=== PATIENT | female | born 2005 | race Caucasian/White ===

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

== ENCOUNTER → 2025-08-18 | Outpatient (CLI) | payer OTHER | LOC: M CLY 14:03 | PROVIDERS: ATTEND Nurse Practitioner Family | DX: M41.35 Thoracogenic scoliosis, thoracolumbar region (principal) ==